=== PATIENT | male | born 1940 | race African-American/Black ===

== ENCOUNTER 2022-09-03 21:38 | Inpatient (IN) | payer OTHER ==
[~2022-09-03] VITALS: Ht 182.9 cm; Wt 44.5 kg
--- NOTE | 2022-09-03 21:44 | NUR ---
Patient placed on bed 1.
[2022-09-03 21:45] VITALS: BP 92/50
--- NOTE | 2022-09-03 21:45 | NUR ---
Dr. Barth examining patient.
[2022-09-03] MEDS ORDERED: cefTRIAXone 1,000 MG in DEXT 5% MINI-BAG PLUS 50 ML IV ONE (21:50)
[2022-09-03 22:12] LABS: BASOPHILS % (AUTO) 0.3 % (0.0-2.0); HEMATOCRIT 31.3 % (36-52); HEMOGLOBIN 9.5 g/dL (12.0-18.0); LYMPHOCYTES # (AUTO) 0.9 K/uL (2.0-11.5); LYMPHOCYTES % (AUTO) 12.7 % (20.5-51.1); MEAN CORPUSCULAR HEMOGLOBIN 26 pg (27-31); MEAN CORPUSCULAR HGB CONC 30 g/dL (33-37); MEAN CORPUSCULAR VOLUME 85.6 fL (80-94); MONOCYTES # (AUTO) 0.6 K/uL (0.8-1.0); MONOCYTES % (AUTO) 8.2 % (1.7-9.3); NEUTROPHILS # (AUTO) 5.4 K/uL (1.8-7.7); NEUTROPHILS % (AUTO) 78.8 % (42.2-75.2); PLATELET COUNT (AUTO) 672 K/uL (140-450); RED BLOOD CELL COUNT(AUTO) 3.66 MIL/uL (4.20-6.10); RED CELL DISTRIBUTION WIDTH 31.2 % (11.6-13.7); WHITE BLOOD COUNT (AUTO) 6.9 K/uL (4.8-10.8)
[2022-09-03] MEDS ORDERED: cefTRIAXone 1,000 MG VIAL ONE (22:24)
[2022-09-03 22:34] LABS: ALBUMIN 2.5 g/dL (3.4-5.0); ASPARTATE AMINOTRANSFERASE 33 U/L (15-37); CARBON DIOXIDE 30.5 mmol/L (21-32); CHLORIDE 109 mmol/L (98-107); CREATININE 1.5 mg/dL (0.6-1.3); GLUCOSE 120 mg/dL (74-106); POTASSIUM 3.5 mmol/L (3.5-5.1); SODIUM SERUM 148 mmol/L (136-145); TOTAL BILIRUBIN 0.2 mg/dL (0.0-1.0); UREA NITROGEN, BLOOD 24 mg/dL (7-18)
[2022-09-03] MEDS ORDERED: FERR325E14 PO (23:21)
[2022-09-03] MEDS ORDERED: NA P133E RC (23:21)
[2022-09-03] MEDS ORDERED: DOXY-690 PO (23:21)
[2022-09-03] MEDS ORDERED: BISA-213 RC (23:21)
[2022-09-03] MEDS ORDERED: DONE5TAB6 PO (23:21)
[2022-09-03] MEDS ORDERED: LIDOCAINE MPF 1% 10 MG/ML VIAL INJ ONE (23:25)
[2022-09-03] MEDS ORDERED: PRED20TA6 PO (23:35)
[2022-09-03] MEDS ORDERED: MIRT-91 PO (23:35)
[2022-09-03] MEDS ORDERED: lactobacillus PO (23:35)
--- NOTE | 2022-09-03 23:55 | NUR ---
RESPIRATORY AT BEDSIDE AND PLACED PT ON SIMPLE MASK. PT HAS 40 % PNEUMOTHORAX TO RIGHT SIDE. PT DENIES ANY PAIN OR SHORTNESS OF BREATH AT THIS TIME. PT IN POSITION OF COMFORT. WILL CONTINUE TO MONITOR. VSS
[2022-09-04] VITALS (14 sets, daily range): BP systolic 98–141; BP diastolic 58–87
--- NOTE | 2022-09-04 | NUR ---
CHEST TUBE SET UP DONE AT THIS TIME BY CADEN BASS
--- NOTE | 2022-09-04 01:14 | NUR ---
PT RESTING, NO S/S OF DISTRESS NOTED AT THIS TIME. VSS. WILL CONTINUE TO MONITOR.
--- NOTE | 2022-09-04 02:05 | NUR ---
DR. TUCKER SPEAKS WITH SON ABOUT CONDITION AND THE NEED FOR CHEST TUBE WITH RISKS AND BENEFITS SPOKEN. SON WILL COME AND SEE PT, TALK TO HIS FATHER AND DECIDE
--- NOTE | 2022-09-04 02:25 | NUR ---
SON AT BEDSIDE WITH DR. TUCKER TO DISCUSS POC. PROCEDURE DISCUSSED WITH RISKS AND BENEFITS KNOWN. WILL HAVE CONSENT FORM SIGNED BY SON AT THIS TIME. SON VERBALIZES FULL UNDERSTANDING AND OK WITH CHEST TUBE.
[2022-09-04] MEDS ORDERED: MORPHINE SULFATE 2 MG/ML SYR IVP PRN (02:40)
[2022-09-04] MEDS ORDERED: HYDROcodone/APAP 5/325 MG 1 TAB TAB PO PRN (02:40)
--- NOTE | 2022-09-04 02:40 | NUR ---
Patient signed consent for chest tube placement .
--- NOTE | 2022-09-04 02:48 | NUR ---
Dr. Mark - started procedure chest tube placement with RN, RT and EMT at bedside.
--- NOTE | 2022-09-04 03:00 | NUR ---
CHEST TUBE PLACEMENT DONE AT THIS TIME. PT TOLERATED WELL.
--- NOTE | 2022-09-04 03:26 | NUR ---
REPORT CALLED TO DOOR CLOSER AT THIS TIME WITH FULL RETURNED VERBAL UNDERSTANDING. PT GOING TO BED 2.
--- NOTE | 2022-09-04 03:48 | NUR ---
PT CLEANED UP AT THIS TIME. PT IS IN A DIAPER AND TOTAL INCONTINENT. PICTURES OF OPEN WOUND TO RIGHT BUTTOCK DONE AT THIS TIME.
--- NOTE | 2022-09-04 04:30 | NUR ---
TRANSPORTED PT TO ICU BED 2 WITH NO COMPLICATIONS. PT LEFT SATING 99% ON 2LNC AND IN NO DISTRESS
--- NOTE | 2022-09-04 04:30 | NUR ---
RECEIVED REPORT FROM ED RN TIFFANIE. PT ARRIVED TO UNIT AT THIS TIME. A&O X2. ABLE TO ANSWER GENERAL QUESTIONS. 2L O2 VIA NASAL CANULA. CHEST TUBE TO RIGHT LATERAL CHEST.ACTIVE BOWEL SOUNDS. PT IS INCONTINENT BOWEL AND BLADDER ACCORDING TO REPORT. A-FIB TO BEDSIDE MONITOR. OPEN WOUND TO RIGHT BUTTOCKS. PT DENIES PAIN AT THIS TIME.
--- NOTE | 2022-09-04 07:29 | NUR ---
REPORT GIVEN TO AM SHIFT CODY HURTADO.
--- NOTE | 2022-09-04 07:30 | NUR ---
REPORT GIVEN TO AM SHIFT CODY HURTADO.
--- NOTE | 2022-09-04 08:00 | NUR ---
ON DUTY RECEIVED THIS PT LETHARGIC, LYING ON BED WITH CHEST TUBE ON. VS STABLE. ON 2L OF NC. BREAKFAST OFFERED, BUT PT REFUSED. PT HAS NO APPETITE.
[2022-09-04] MEDS: PANTOPRAZOLE 40 MG INJ VIAL IVP SCH ×2 (09:00→09:27)
--- NOTE | 2022-09-04 10:30 | NUR ---
WOUND NURSE SILVER CAME IN TO ASSESS PT. WOUND CARE DONE.
--- NOTE | 2022-09-04 11:00 | NUR ---
WOUND CARE NOTE: SKIN ASSESSMENT DONE WITH PRIMARY RN GENESIS ON THIS 81 Y/O ADMITTED WITH INITIAL DX SOB AND COVID-19 IN August. PAST MEDICAL HISTORY OF CHRONIC LEFT LOWER EXTREMITY DVT, CKD, IDDM, DYSPHAGIA, ANEMIA. PT ADMITTED WITH PRESSURE INJURY TO SACRAL. SPINAL BONY AREA INCLUDING COCCYX SKIN ATTACHED TO BONE, VERY THIN AND EASILY TO TORN. PT. BMI IS 13.3 AND ALBUMIN 2.5. PT. SKIN IS WARM AND DRY, BILATERAL LOWER EXTREMITY DRY NO EDEMA. DORSAL PEDAL PULSES PRESENT AND NORMAL. INCONTINENT BOWEL AND BLADDER. PLAN OF CARE DISCUSSED WITH PRIMARY RN. INTEGUMENTARY: -CHEST TUBE TO RIGHT CHEST SECURED AND DRESSING DCI. -SACRAL PRESSURE INJURY STAGE 3 WITH 2X1X0.3CM WOUND BED 100% RED, MOIST, NO ODOR, KHLOE-WOUND SKIN NON-BLANCHABLE REDNESS FURTHER DAMAGE INDICATED - BILATERAL SCAPULARS, SPINAL AREA, COCCYX, PELVIC/TROCHANTERS/KNEES/ANKLES BONY AREAS SKIN THIN TO BONE EASILY TO TORN. -BILATERAL HEELS MUSHY/SKIN INTACT RECOMMENDATIONS: -CLEANSE SACRAL WOUND WITH WOUND CLEANSING SOLUTION, PAT DRY, APPLY THERAHONEY GEL TO WOUND BED, AND Z GUARD TO KHLOE-WOUND SKIN, COVER WITH COMPOSITE DRESSING QD AND PRN IF SOILING -APPLY HYDRAGUARD TO ALL LIMBS AND TRUNK OF BODY BID AND DOWEL SANDER OPERATOR -APPLY FOAM DRESSING TO ALL BONY AREAS BILATERAL SCAPULARS, SPINAL AREA, COCCYX, PELVIC/TROCHANTERS/KNEES/ANKLES BONY AREAS -APPLY HEEL RAISERS TO BILATERAL HEELS -POSITIONING: TURN AND REPOSITION PATIENT Q 2H OR SOONER USE PILLOWS TO KEEP BONY PROMINENCES FROM DIRECT CONTACT WITH SURFACES USE REPOSITIONING WEDGES TO PROVIDE 30-DEGREE ANGLE FOR SIDE LYING POSITIONS OFFLOADING OR FOAM DRESSING TO ALL TUBING TO PREVENT MEDICAL DEVICES RELATED PRESSURE INJURY -RE-EVALUATING AND MANAGING INCONTINENCE MONITOR SKIN CONDITION DURING POSITION CHANGE DO NOT MASSAGE REDNESS, BONY PROMINENCES, DO NOT USE DONUT-TYPE DEVICES FREQUENT KHLOE-CARE AND PROVIDE BARRIER CREAMS PRN IF SOILING MOISTURE CONTROL BY OFFER BED PAGAN/URINAL /ABSORBENT PAD TO WICK AND HOLD MOISTURE. KEEP SKIN DRY AND PROTECT FROM FRICTION -MANAGE FRICTION/SHEAR/MOBILITY KEEP HOB AT THE LOWEST LEVEL OF ELEVATION NO MORE THAN 30 DEGREES UNLESS OTHERWISE CONTRAINDICATED USE LIFT SHEET OR TRANSFER DEVICE TO MOVE PATIENT AND PREVENT LATERAL SHEER. CONSIDER TRAPEZE IF APPROPRIATE PROTECT HEELS, ELBOWS BONY PROMINENCES WITH SKIN BERRIES OR FOAM DRESSING IF EXPOSED TO FRICTION OFFLOAD BILATERAL HEELS BY PLACING PILLOWS UNDER CALVES AT ALL TIMES, UNLESS OTHERWISE CONTRAINDICATED -PRESSURE REDISTRIBUTION SURFACE THERAPY JAZMINE ISOFLEX EDOUARD MATTRESS -NUTRITION: PLEASE FOLLOW RD RECOMMENDATIONS AND OFFER NUTRITION SUPPLEMENTS IF ORDERED.
--- NOTE | 2022-09-04 11:04 | NUR ---
AWAKE RESPONSIVE TO WEB WORKER VERBAL COMMANDS RECEIVED ON SUPPLEMENTAL OXYGEN AT 4 LPM VIA NC SATURATION 100% TITRATED FIO2 TO 3 LPM PATIENT PRESENTING WITH FLUCTUATING SATURATION COLD EXTREMITIES BLOOD PRESSURE 101/61 WEB WORKER TO OBTAIN ROUTINE ABG Addendum: 09/04/22 at 1129 by Vinny Meraz RT GENESIS/ICU BULL RIVETER NOTIFIED
--- NOTE | 2022-09-04 11:30 | NUR ---
PT GOT MORE ALERT. FEED PT WITH BREAKFAST. PT ATE WELL. 50% CONSUMED. PT PERIODICALLY DISATURATED TO 70'S%. BUT SOMETIMES 100%. PT IS ASYMPTOMATIC. RT BEDSIDE. DR. COSTA, CAME TO ASSESS PT. PT SITUATION WAS UPDATED TO PT. NO NEW ORDER.
[2022-09-04] MEDS ORDERED: THERAHONEY GEL 42.5 GM TP PRN (12:05)
[2022-09-04] MEDS ORDERED: FOAM DRESSING TP PRN (12:05)
[2022-09-04] MEDS ORDERED: Z-GUARD PASTE TP PRN (12:05)
--- NOTE | 2022-09-04 12:30 | NUR ---
DISCHARGE PLANNING SW ATTEMPTED TO MEET WITH PATIENT AT BEDSIDE TO DISCUSS AND GATHER HER COLLATERAL INFORMATION. PATIENT WAS AWAKE BUT NOT VERY ALERT, UNABLE TO PROVIDER HER OWN INFORMATION. SW ASKED PATIENT IF THESE WINDER HAND CAN CALL HER DAUGHTER LISTED IN EMERGENCY CONTACTS ANDREA SANTANA TO COLLECT HER INFORMATION AT . PATIENT STATED "YES, CALL ANDREA" SW THANKED HER AND ENDED THE VISIT WITH PATIENT. SW ATTEMPTED TO CONTACT PATIENT'S DAUGHTER ANDREA SANTANA AT . PATIENT'S DAUGHTER DID NOT RESPONDED THE CALL AND SW LEFT HER VOICE MAIL. WITH REQUEST FOR A CALL BACK. SW WILL FOLLOW UP NEEDED.
[2022-09-04] MEDS: FOAM DRESSING TP SCH (13:19)
[2022-09-04] MEDS: HYDRAGUARD CREAM TP SCH (13:20)
[2022-09-04] MEDS: THERAHONEY GEL 42.5 GM TP SCH (13:21)
[2022-09-04] MEDS: Z-GUARD PASTE TP SCH (13:21)
--- NOTE | 2022-09-04 13:40 | NUR ---
PATIENT HAS BEEN SCREENED AND CATEGORIZED HIGH NUTRITION RISK. PATIENT WILL BE SEEN WITHIN 1-2 DAYS OF ADMISSION. 09/05/2210/22/22 CONSULT RECEIVED FOR WOUNDS AND PRESSURE INJURY NJ BARTLETT RD
[2022-09-04] MEDS ORDERED: NACL 0.45% 500 ML IV SCH (16:00)
[2022-09-04] MEDS ORDERED: bisacodyL 10 MG SUPP RC PRN (16:05)
[2022-09-04] MEDS ORDERED: SODIUM PHOSPHATE 118 ML ENEM RC PRN (16:05)
[2022-09-04] MEDS ORDERED: NACL 0.45% 1,000 ML IV SCH (16:10)
--- NOTE | 2022-09-04 16:50 | NUR ---
PT WAS ADMITED TO TEL. ROOM 121B. REPORT WAS CALLED AND GIVEN TO MARVA ROSS.
--- NOTE | 2022-09-04 17:30 | NUR ---
RECEIVED PT CARE AND REPORT FROM GENESIS QUALITY ASSURANCE TESTER. PT IS RESTING IN BED SEMI-FOWLERS. A&OX4. NO VISIBLE S/S OF DISTRESS OR DISCOMFORT, DENIES ANY PAIN OR SOB. CALL LIGHT WAS PLACED WITHIN REACH. ORIENTED PATIENT TO CALL LIGHT AND ROOM. CHEST TUBE IN PLACE ON RIGHT CHEST WALL. DIAPER PLACED ON PATIENT. PT WILL BE MOVED TO BED A FOR EASIER ACCESS TO SUCTION ON WALL. ALL NEEDS HAVE BEEN MET AT THIS TIMEM.
[2022-09-04] MEDS: BLOOD GLUCOSE MONITORING 1 DEV DEV FS SCH ×2 (18:45→20:33)
--- NOTE | 2022-09-04 18:52 | NUR ---
PT IS RESTING IN BED SEMI FOWLERS, A&OX2. NO VISIBLE S/S OF DISTRESS IR DISCOMFORT. DENIES ANY PAIN OR SOB. CHEST TUBE CONNECTED TO WALL SUCTION WITH 180ML OF SEROSANGUINOUS FLUID IN CHAMBER. BS OF 78, NO COVERAGE NEEDED AT THIS TIME. STARTED 0.45% NS AT 40ML IN LEFT AC. ALL NEEDS MET AT THIS TIME, WILL ENDORSE TO NOC SHIFT.
--- NOTE | 2022-09-04 19:20 | NUR ---
RECEIVED PATIENT IN BED AWAKE, ALERT AND ORIENTED X 2. RE-ORIENTED TO TIME, PLACE AND DATED. EATING DINNER AT THIS TIME. RIGHT CHEST TUBE TO SUCTION. NO SHORTNESS OF BREATH, ON 2L N/C SAT 98%. SKIN WARM AND DRY TO TOUCH. LEFT AC IV SITE LEAKING, WILL CHANGE IV WHEN PT FINISHES EATING. SKIN WARM AND DRY TO TOUCH. BED IN THE LOWEST AND LOCKED POSITION FOR SAFETY, CALL LIGHT IN REACH.
--- NOTE | 2022-09-04 19:40 | NUR ---
IV INSERTED IN THE RIGHT FOREARM GAUGE 20 X 1 ATTEMPT, PT TOLERATED WELL.
[2022-09-04] MEDS: DONEPEZIL 10 MG TAB PO SCH (20:21)
[2022-09-04] MEDS: MIRTAZAPINE 15 MG TAB PO SCH (20:22)
--- NOTE | 2022-09-04 21:00 | NUR ---
PATIENT TRIED TO GET OUT OF BED, RE-ORIENTATION DONE. IV ACCIDENTALLY GOT PULLED OUT. INSERTED IV IN THE RIGHT HAND GAUGE 20 X 1 ATTEMPT. PT TOLERATED WELL.
--- NOTE | 2022-09-04 22:35 | NUR ---
LAB CALLED FOR URINE SPECIMEN, NEW ORDER FOR STRAIGHT CATH.
--- NOTE | 2022-09-04 23:00 | NUR ---
IN AND OUT CATHETER DONE ORDERED FOR URINE COLLECTION, NOTED RESISTANCE REMOVED CATHETER AND NOTED SOME BLEEDING. BLADDER SCANNING DONE NOTED MORE THAN 400 CC.
--- NOTE | 2022-09-04 23:40 | NUR ---
RECLAMATION SUPERVISOR MADE UNABLE TO DO IN AND OUT, INSERTED CAUDET SUCCESSFULLY BUT NOTED BLOOD CLOTS, IRRIGATED BUT NO URINE DRAINING, CALLED DR. TOLEDO, AWAITING CALL BACK.
[2022-09-05] VITALS: BP 124/66
--- NOTE | 2022-09-05 | NUR ---
DR. TOLEDO ORDERED FOR UROLOGY CONSULT IN AM AND AN ULTRASOUND OF THE BLADDER NOW. Addendum: 09/05/22 at 0042 by Katty Ledbetter RN KIDNEY ULTRASOUND.
[2022-09-05] MEDS: HYDRAGUARD CREAM TP SCH ×2 (00:06→13:50)
[2022-09-05] MEDS: Z-GUARD PASTE TP SCH ×2 (00:06→13:51)
[2022-09-05] MEDS: ALBUTEROL SULFATE/IPRATROPIU 3 ML SOL IH SCH ×4 (00:42→20:00)
--- NOTE | 2022-09-05 01:10 | NUR ---
ULTRASOUND BEING DONE ORDERED.
--- NOTE | 2022-09-05 01:30 | NUR ---
per pc technician, no catheter seen and minimal urine noted, full charge bookkeeper made aware and he removed urinary catheter. at this time, pad noted to be wet with blood tinged urine. cleaned patient, made comfortable.
[2022-09-05 04:00] VITALS: BP 115/70
--- NOTE | 2022-09-05 04:21 | NUR ---
WILL INFORM DR TOLEDO OF RESULT OF ULTRASOUND ORDERED. AWAITING RESPONSE.
--- NOTE | 2022-09-05 05:31 | NUR ---
AM CARE RENDERED. NO ACUTE DISTRESS. CALL LIGHT IN REACH,
--- NOTE | 2022-09-05 06:12 | NUR ---
LAB CALLED FOR LACTIC ACID OF 3.6, CALLED DR. CHACORTA TOLEDO, AWAITING CALL BACK.
--- NOTE | 2022-09-05 06:23 | NUR ---
PATIENT IS ASLEEP, NO DISTRESS NOTED, SCANTY BLOOD NOTED WHEN DOING PERINEAL CARE. ALL NEEDS ATTENDED TO. SAFETY PRECAUTIONS IN PLACE. CALL LIGHT WITHIN REACH.
[2022-09-05] MEDS: INSULIN LISPRO SLIDING SCALE 100 UNITS/ML VIAL SUBQ PRN (06:32)
[2022-09-05] MEDS: BLOOD GLUCOSE MONITORING 1 DEV DEV FS SCH ×4 (06:32→21:00)
[2022-09-05 08:00] VITALS: BP 99/51
--- NOTE | 2022-09-05 08:45 | NUR ---
Pt. complains of chest pain. V/S WNL. Morphine given as ordered. EKG done. MD aware.
[2022-09-05] MEDS: FERROUS SULFATE 325 MG TABEC PO SCH (09:09)
[2022-09-05] MEDS: DEXTROSE 50% 50 ML SYR IVP PRN (11:47)
--- NOTE | 2022-09-05 11:49 | NUR ---
PER NOTES, PT IS A&O X2 AND IS POOR HISTORIAN. GERTRUDIS OUTREACHED TO PT EMERGENCY CONTACT ANDREA (GRANDDAUGHTER) HOWEVER, ANDREA STRUGGLED TO CONFIRM INFORMATION AND DETAILS ON FILE. ANDREA REQUESTED THAT SW CALL JANNY SANTANA, PT'S SON, TO GATHER COLLATERAL INFORMATION. ANDREA REPORTS THAT PATIENT WAS PREVIOUSLY RESIDING WITH JANNY, HOWEVER, WAS RECENTLY ADMITTED TO [facility] AND DC'd TO "[place]" , ANDREA STRUGGLED TO RECALL NAME OF SNF. ANDREA REPORTS PT HAS BEEN AT [facility] FOR ROUGHLY THREE WEEKS. ANDREA REPORTS PATIENT WAS ADMITTED TO [facility] FROM SNF. GERTRUDIS OUTREACHED TO JANNY SANTANA [phone] TO GATHER COLLATERAL INFORMATION, HOWEVER, NO ANSWER. GERTRUDIS LEFT MESSAGE REQUESTING A RETURN PHONE CALL. Addendum: 09/05/22 at 1559 by Yenni FUENTES SW UNABLE TO REACH PT'S SON, JANNY SANTANA. GERTRUDIS OUTREACHED TO [facility]. SPOKE WITH KIMMY [facility] PURNIMA WHO REPORT PTS IS ADMITTED UNDER SKILLED CARE. PATIENTS ADMISSION DATE 08/17/22, PT IS RECEIVING PT AND OT. PATIENT IS REPORTED TO BE WC BOUND AND IS ABLE TO MAKE NEEDS KNOWN. PATIENTS FAMILY IS REPORTED TO BE ACTIVELY INVOLVED IN CARE AND VISITS WITH PATIENT FREQUENTLY. PER [facility] DC PLAN IS FOR PATIENT TO RETURN WHEN MEDICALLY STABLE.
--- NOTE | 2022-09-05 11:55 | NUR ---
Patient BS=34. MD made aware with orders. Patient is alert. not in any form of distress. will recheck BS and continue to monitor.
[2022-09-05 12:00] VITALS: BP 142/82
[2022-09-05] MEDS: DEXT 5% /NACL 0.9% 1,000 ML IV SCH (12:03)
[2022-09-05] MEDS: DEXTROSE 50% 50 ML SYR IVP SCH (12:03)
[2022-09-05] MEDS: THERAHONEY GEL 42.5 GM TP SCH (13:51)
[2022-09-05 14:28] LABS: BASOPHILS % (AUTO) 0.3 % (0.0-2.0); EOSINOPHILS % (AUTO) 0.1 % (0.0-4.0); HEMATOCRIT 28.3 % (36-52); HEMOGLOBIN 9.1 g/dL (12.0-18.0); LYMPHOCYTES % (AUTO) 14.1 % (20.5-51.1); MEAN CORPUSCULAR HEMOGLOBIN 26 pg (27-31); MEAN CORPUSCULAR HGB CONC 32 g/dL (33-37); MEAN CORPUSCULAR VOLUME 82.6 fL (80-94); MONOCYTES # (AUTO) 0.5 K/uL (0.8-1.0); MONOCYTES % (AUTO) 6.5 % (1.7-9.3); NEUTROPHILS # (AUTO) 5.8 K/uL (1.8-7.7); PLATELET COUNT (AUTO) 500 K/uL (140-450); RED BLOOD CELL COUNT(AUTO) 3.43 MIL/uL (4.20-6.10); RED CELL DISTRIBUTION WIDTH 31.7 % (11.6-13.7); WHITE BLOOD COUNT (AUTO) 7.4 K/uL (4.8-10.8)
[2022-09-05 14:44] LABS: ANION GAP 13.1 (8-16); CARBON DIOXIDE 29.3 mmol/L (21-32); CHLORIDE 108 mmol/L (98-107); CREATININE 1.3 mg/dL (0.6-1.3); GLUCOSE 121 mg/dL (74-106); POTASSIUM 3.4 mmol/L (3.5-5.1); SODIUM SERUM 147 mmol/L (136-145); UREA NITROGEN, BLOOD 30 mg/dL (7-18)
--- NOTE | 2022-09-05 15:03 | NUR ---
09/05/22 RD INITIAL ASSESSMENT COMPLETED PLEASE REFER TO NUTRITION ASSESSMENT UNDER CARE ACTIVITY FOR ESTIMATED NUTRITIONAL NEEDS. 1. CONTINUE CCHO60 CARDIAC, NECTAR THICK LIQUIDS (MECHANICAL SOFT) DIET TOLERATED 2. RECOMMEND ORAL SUPPLEMENT GLUCERNA BID AND PROSOURCE BID WITH NECTAR CONSISTENCY THICKENER FOR NUTRITION SUPPORT - THIS WILL PROVIDE AN ADDITIONAL 560 KCAL AND [address] TO FOLLOW-UP 3-5 DAYS, MODERATE RISK REVIEWED BY NJ BARTLETT RD
--- NOTE | 2022-09-05 15:28 | NUR ---
DC PLANNIN YRS OLD MALE PATIENT WAS ADMITTED FROM [facility] WITH A DX OF PNEUMOTHORAX. PATIENT HAS A HX OF CKD, DM, ANEMIA, DYSPHAGIA COVID, DEMENTIA AND CHRONIC LLE DVT. INSERTED CHEST TUBE, LEMUS CATH FOR URINARY RETENTION. CONSULTED WITH PULMO, UROLOGIST AND SHERIFFS OFFICER DC PLAN TO RETURN TO [facility] WHEN STABLE CM TO FOLLOW Addendum: 09/09/22 at 1540 by Cindy Pearson RN DC PLANNING: STILL HAS CHEST TUBE C/O MILD SOB CXR SHOWED DECREASED SIZE OF RIGHT PNEUMOTHORAX AWAITING FOR PULMO RECOMMENDATION. DC PLAN TO RETURN TO [facility] WHEN STABLE. CM TO FOLLOW Addendum: 09/11/22 at 1643 by Cindy Pearson RN DC PLANNING: RECEIVED A CALL FROM [facility] SPOKE WITH BASIM GRIFFIN PATIENT HAS A [facility] BENEF[facility] AND THEY ARE NOT CONTRACTED WITH [facility] HOWEVER THEY REQUESTING ONE OF THE SISTER'S FACILITY TO ACCEPT PATIENT AND THEY FORWARDED PT'S INFORMATION TO [facility]. RECEIVED A CALL FROM [facility] SPOKE WITH JOHN GRIFFIN STILL AWAITING FOR AUTHORIZATION FROM [place]. CM TO FOLLOW Addendum: 09/12/22 at 1705 by Cindy Pearson RN DC PLANNING: [facility] ACCEPTED PATIENT FOR TOMORROW 09/13 CAN GO TO ROOM 6A # TO GIVE REPORT [phone] ARRANGED TRANSPORT WITH [facility] CALL [facility] [phone] CM TO FOLLOW
[2022-09-05 17:45] VITALS: BP 132/82
[2022-09-05] MEDS: MIRTAZAPINE 15 MG TAB PO SCH (22:30)
[2022-09-05] MEDS: DONEPEZIL 10 MG TAB PO SCH (22:30)
--- NOTE | 2022-09-05 22:38 | NUR ---
REFUSED REMERON , ARICEPT , AND HEP. SQ - INFORMED DR. TOLEDO . THE ARICEPT NOT SUBJECTIVE ANY MORE TO RETURN TO [facility]. IT IS ALREADY CUT INTO HALF , ALSO THE HEPARIN IS ALREADY ASPIRATED TO [place] - WILL DISPOSE THE MEDS PER POLICY . CHARGE NURSE INFORMED .
[2022-09-06] MEDS: Z-GUARD PASTE TP SCH ×2 (01:00→12:57)
[2022-09-06] MEDS: HYDRAGUARD CREAM TP SCH ×2 (01:00→12:57)
[2022-09-06] MEDS: ALBUTEROL SULFATE/IPRATROPIU 3 ML SOL IH SCH ×3 (01:27→19:30)
--- NOTE | 2022-09-06 01:32 | NUR ---
ROUNDS , FOUND PT SITTING ON THE EDGE OF THE BED , TRYING TO GET UP , IV OUT - IV NEEDLE INTACT , MIN. BLEEDING , CHARGE NURSE LUANA HELP ME TO PUT PT LAY BACK OF THE BED , V/S CHECK BP 133/ 80 , MD 88 , RR 20 , O2 SAT 98 % , ON O2 AT 2LPM/NC . WILL CLEAN UP AND WILL CONT. TO MONITOR , WILL RE INSERT NEW IV ACCESS . , CALL LIGHT WITHIN REACH .
[2022-09-06 02:00] VITALS: BP 103/87
--- NOTE | 2022-09-06 02:00 | NUR ---
RE INSERTED IV ACCESS , AT L ARM G22 PT TOLERATED THE PROCEDURE , MIN. BLEEDING .
[2022-09-06 04:00] VITALS: BP 122/60
[2022-09-06] MEDS: DEXT 5% /NACL 0.9% 1,000 ML IV SCH ×2 (04:30→20:50)
--- NOTE | 2022-09-06 04:50 | NUR ---
O2 SAT 94 % , ON O2 AT 2LPM/NC , CALL LIGHT WITHIN REACH , CHEST TUBE INTACT AND FLACTUATING .
--- NOTE | 2022-09-06 05:14 | NUR ---
SCANT. URINE ON URINE BAG , SOFT ABD , - BLADDER SCAN AT RIGHT LOWER IS 60 ML , AT RIGHT UPPER IS 40CC AT THE LEFT UPPER 30CC - THE LEFT LOWER CAN'T SCAN BECAUSE PT IS HESITANTLY PUSHING MY HAND AND TRY TO HIT ME . - WILL 9INFORMED CHARGE NURSE KENNETH CRAFT. TO MONITOR . Addendum: 09/06/22 at 0520 by Ananya Knight RN THE WORD SCANT IN THE ABOVE NURSE'S NOTE IS AN ERROR ENTRY INSTEAD OF SCANTY .
--- NOTE | 2022-09-06 05:38 | NUR ---
TRY TO GET UP , ENSURE SAFETY , CHEST TUBE CHECK - INTACT , CONNECTING TO DRAINAGE - FLACTUATING , BP 140 / 91 , O2 SAT 96 5 , RR 20 , HR 89 , FOR CLOSELY WATCH .
--- NOTE | 2022-09-06 05:40 | NUR ---
FEED PT - NO S/SX OF ASPIRATION NOTED DURING FEEDING . WILL CONT. TO MONITOR . WILL CHECK BLOOD SUGAR .
[2022-09-06] MEDS: DEXTROSE 50% 50 ML SYR IVP PRN (06:20)
[2022-09-06] MEDS: BLOOD GLUCOSE MONITORING 1 DEV DEV FS SCH ×4 (06:20→20:50)
[2022-09-06] MEDS: DEXTROSE 50% 50 ML SYR IVP SCH (06:24)
--- NOTE | 2022-09-06 07:45 | NUR ---
ENDORSED W/ TOTAL 150 CC CHEST TUBE DRAINAGE FOR MY WHOLE SHIFT , BS 107 , AWAKE , O2 SAT 94 %
[2022-09-06 08:00] VITALS: BP 129/75
[2022-09-06] MEDS: PANTOPRAZOLE 40 MG INJ VIAL IVP SCH (09:55)
[2022-09-06] MEDS: FERROUS SULFATE 325 MG TABEC PO SCH (09:55)
[2022-09-06 12:00] VITALS: BP 132/72
[2022-09-06] MEDS: metroNIDAZOLE 500 MG/NS PREMIX 100 ML IV SCH ×2 (12:54→20:37)
[2022-09-06] MEDS: THERAHONEY GEL 42.5 GM TP SCH (13:00)
[2022-09-06 15:32] LABS: ANION GAP 14.5 (8-16); CARBON DIOXIDE 27.1 mmol/L (21-32); CHLORIDE 111 mmol/L (98-107); CREATININE 1.2 mg/dL (0.6-1.3); GLUCOSE 95 mg/dL (74-106); POTASSIUM 3.6 mmol/L (3.5-5.1); SODIUM SERUM 149 mmol/L (136-145); UREA NITROGEN, BLOOD 27 mg/dL (7-18)
[2022-09-06 16:00] VITALS: BP 126/70
[2022-09-06 18:25] LABS: EOSINOPHILS % (AUTO) 0.1 % (0.0-4.0); HEMATOCRIT 23.6 % (36-52); MONOCYTES # (AUTO) 0.4 K/uL (0.8-1.0); RED BLOOD CELL COUNT(AUTO) 2.77 MIL/uL (4.20-6.10)
[2022-09-06 18:32] LABS: BASOPHILS % (AUTO) 0.6 % (0.0-2.0); HEMOGLOBIN 7.7 g/dL (12.0-18.0); LYMPHOCYTES # (AUTO) 1.3 K/uL (2.0-11.5); MEAN CORPUSCULAR HEMOGLOBIN 28 pg (27-31); MEAN CORPUSCULAR HGB CONC 33 g/dL (33-37); MONOCYTES % (AUTO) 8.7 % (1.7-9.3); NEUTROPHILS # (AUTO) 2.5 K/uL (1.8-7.7); NEUTROPHILS % (AUTO) 60.6 % (42.2-75.2); PLATELET COUNT (AUTO) 520 K/uL (140-450); RED CELL DISTRIBUTION WIDTH 31.7 % (11.6-13.7); WHITE BLOOD COUNT (AUTO) 4.2 K/uL (4.8-10.8)
--- NOTE | 2022-09-06 19:39 | NUR ---
GET THE REPORT FROM MORNING NURSE, PATIENT IS LYING ON BED, PATIENT IS ALERT ORIENTED X2-3 ,PATIENT IS RECEIVING OXYGEN 2 LITER VIA NASAL CANNULA, PATIENT HAS CHEST TUBE, FUNCTIONING WELL, ALL FALL PRECAUTION MEASURE ARE IN PLACE, CALL LIGHT IS WITHIN THE REACH, WILL CONTINUE TO MONITOR PATIENT.
[2022-09-06 20:00] VITALS: BP 130/76
[2022-09-06] MEDS: MIRTAZAPINE 15 MG TAB PO SCH (20:45)
[2022-09-06] MEDS: DONEPEZIL 10 MG TAB PO SCH (20:45)
--- NOTE | 2022-09-06 20:51 | NUR ---
PATIENT IS LYING ON BED, NO ANY COMPLAIN OF PAIN OR SHORTNESS OF BREATH AT THIS TIME, VITAL SIGN IS WITHIN THE NORMAL RANGE,PATIENT BLOOD SUGAR IS 95, NO INSULIN COVERAGE IS NEEDED AT THIS TIME, ALL SCHEDULE MEDICATION IS GIVEN PER DOCTOR ORDER, CALL LIGHT IS WITHIN THE REACH, WILL CONTINUE TO MONITOR PATIENT.
[2022-09-06 21:05] LABS: APPEARANCE,URINE SL CLOUDY (CLEAR); BILIRUBIN,URINE NEGATIVE (NEGATIVE); BLOOD, URINE 3+ (NEGATIVE); COLOR,URINE DARK YELLOW (YELLOW); LEUKOCYTE ESTERASE ,URINE 1+ (NEGATIVE); NITRITE, URINE NEGATIVE (NEGATIVE); UGLUCOSE NEGATIVE (NEGATIVE)
[2022-09-06 21:29] LABS: RBC,URINE 50-80 /HPF (0-5); WBC,URINE 20-60 /HPF (0-5)
[2022-09-06 21:32] LABS: TRICHOMONAS,URINE None Seen /HPF (None Seen); YEAST,URINE None Seen /HPF (None Seen)
[2022-09-07] VITALS: BP 149/80
[2022-09-07] MEDS: HYDRAGUARD CREAM TP SCH ×2 (00:09→13:39)
[2022-09-07] MEDS: Z-GUARD PASTE TP SCH ×2 (00:09→13:39)
--- NOTE | 2022-09-07 00:13 | NUR ---
PATIENT IS LYING ON BED, NO ANY COMPLAIN OF PAIN OR SHORTNESS OF BREATH AT THIS TIME,VITAL SIGN IS WITHIN THE NORMAL RANGE, CALL LIGHT IS WITHIN THE REACH, WILL CONTINUE TO MONITOR PATIENT.
[2022-09-07] MEDS: ALBUTEROL SULFATE/IPRATROPIU 3 ML SOL IH SCH ×4 (00:27→19:25)
[2022-09-07] MEDS: DEXT 5% /NACL 0.9% 1,000 ML IV SCH (03:41)
[2022-09-07 04:00] VITALS: BP 137/84
--- NOTE | 2022-09-07 04:28 | NUR ---
VITAL SIGN IS WITHIN THE NORMAL RANGE, ALL SCHEDULE MEDICATION IS GIVEN PER DOCTOR ORDER, NO ANY COMPLAIN OF PAIN OR SHORTNESS OF BREATH AT THIS TIME, CALL LIGHT IS WITHIN THE REACH, WILL CONTINUE TO MONITOR PATIENT.
[2022-09-07 05:53] LABS: BASOPHILS % (AUTO) 0.8 % (0.0-2.0); EOSINOPHILS % (AUTO) 0.6 % (0.0-4.0); HEMATOCRIT 24.8 % (36-52); HEMOGLOBIN 8.2 g/dL (12.0-18.0); LYMPHOCYTES % (AUTO) 26.4 % (20.5-51.1); MEAN CORPUSCULAR HEMOGLOBIN 28 pg (27-31); MEAN CORPUSCULAR HGB CONC 33 g/dL (33-37); MEAN CORPUSCULAR VOLUME 84.4 fL (80-94); MONOCYTES # (AUTO) 0.4 K/uL (0.8-1.0); MONOCYTES % (AUTO) 11.3 % (1.7-9.3); NEUTROPHILS # (AUTO) 2.4 K/uL (1.8-7.7); NEUTROPHILS % (AUTO) 60.9 % (42.2-75.2); PLATELET COUNT (AUTO) 562 K/uL (140-450); RED BLOOD CELL COUNT(AUTO) 2.94 MIL/uL (4.20-6.10); RED CELL DISTRIBUTION WIDTH 31.8 % (11.6-13.7); WHITE BLOOD COUNT (AUTO) 3.9 K/uL (4.8-10.8)
[2022-09-07] MEDS: metroNIDAZOLE 500 MG/NS PREMIX 100 ML IV SCH ×3 (06:05→21:05)
[2022-09-07 06:17] LABS: ANION GAP 12.6 (8-16); CARBON DIOXIDE 27.7 mmol/L (21-32); CHLORIDE 113 mmol/L (98-107); GLUCOSE 76 mg/dL (74-106); POTASSIUM 3.3 mmol/L (3.5-5.1); SODIUM SERUM 150 mmol/L (136-145); UREA NITROGEN, BLOOD 22 mg/dL (7-18)
[2022-09-07] MEDS: BLOOD GLUCOSE MONITORING 1 DEV DEV FS SCH ×4 (06:31→20:47)
--- NOTE | 2022-09-07 06:32 | NUR ---
PATIENT BLOOD SUGAR IS 68, NO INSULIN COVERAGE IS NEEDED AT THIS TIME, CALL LIGHT IS WITHIN THE REACH ,WILL CONTINUE TO MONITOR PATIENT.
--- NOTE | 2022-09-07 07:08 | NUR ---
GAVE THE REPORT TO MORNING NURSE ADZE FOR CONTINUOUS OF CARE, PATIENT IS STABLE.
--- NOTE | 2022-09-07 07:40 | NUR ---
PT REFUSED TX. WANTED TO KEEP SLEEPING. NO DISTRESS NOTED.
[2022-09-07 08:00] VITALS: BP 135/90
[2022-09-07] MEDS ORDERED: MAG SULF 2000 MG/WATER PREMIX 50 ML IV PRN (08:25)
[2022-09-07] MEDS ORDERED: POTASSIUM CHLORIDE 10 MEQ TABER PO PRN (08:25)
[2022-09-07] MEDS ORDERED: KCL 20 MEQ/WATER INJ PREMIX 200 ML IV PRN (08:25)
[2022-09-07] MEDS ORDERED: POTASSIUM CHLORIDE 40 MEQ, LIDOCAINE MPF 1% 25 MG in NACL 0.9% 250 ML IV PRN (08:25)
[2022-09-07] MEDS: FOAM DRESSING TP SCH (09:00)
[2022-09-07] MEDS: PANTOPRAZOLE 40 MG INJ VIAL IVP SCH (09:59)
[2022-09-07] MEDS: FERROUS SULFATE 325 MG TABEC PO SCH (10:00)
[2022-09-07 12:00] VITALS: BP 130/72
[2022-09-07] MEDS: DEXTROSE 50% 50 ML SYR IVP SCH (12:00)
[2022-09-07] MEDS: THERAHONEY GEL 42.5 GM TP SCH (13:39)
--- NOTE | 2022-09-07 14:00 | NUR ---
pt refused tx. no distress noted.
[2022-09-07 16:00] VITALS: BP 133/75
--- NOTE | 2022-09-07 16:00 | NUR ---
R hand IV infiltrated. patient pulled IV dressing out. R hand swollen but soft ,non tender, pt. denies any pain. Will elevate R hand and continue to monitor.
[2022-09-07] MEDS: INSULIN LISPRO SLIDING SCALE 100 UNITS/ML VIAL SUBQ PRN (17:16)
--- NOTE | 2022-09-07 19:16 | NUR ---
pt. refused to eat dinner. states he will eat dinner in an hour. BS 108. Inserted new IV to R upper hand with good blood return. Pt. tolerated well. R chest tube intact draining to LIS. Gore catheter remained intact. will endorse to PM nurse.
--- NOTE | 2022-09-07 19:50 | NUR ---
GOT REPORT FROM AM NURSE BOOGIE, PATIENT IS LYING ON THE BED, PATIENT IS ALERT AND ORIENTED X2-3, ALL FALL PRECAUTION MEASURES ARE IN PLACE, PATIENT IS ON O2 @2L NC, PATIENT HAS RIGHT SIDE CHEST TUBE, FUNCTIONING WELL, PATIENT HAS LEMUS CATHETER IN PLACE, PATENT, CALL LIGHT IS WITHIN REACH, WILL CONTINUE TO MONITOR PATIENT.
[2022-09-07 20:00] VITALS: BP 151/83
[2022-09-07] MEDS: MIRTAZAPINE 15 MG TAB PO SCH (20:47)
[2022-09-07] MEDS: DONEPEZIL 10 MG TAB PO SCH (20:47)
--- NOTE | 2022-09-07 20:58 | NUR ---
PATIENT IS LYING ON THE BED, ON O2 2LPM NC, NO SOB OR PAIN NOTED AT THIS TIME, BS 99MG/DL, NO COVERAGE NEEDED, ALL SCHEDULED MEDICATIONS GIVEN ORDERED, VITAL SIGNS WITHIN THE NORMAL RANGE. CALL LIGHT WITHIN REACH, WILL CONTINUE TO MONITOR.
[2022-09-08] VITALS: BP 138/80
--- NOTE | 2022-09-08 00:20 | NUR ---
VITAL SIGN IS WITHIN THE NORMAL RANGE, PATIENT IS LYING ON BED, NO ANY COMPLAIN OF PAIN OR SOB AT THIS TIME, WILL CONTINUE TO MONITOR PATIENT.
[2022-09-08] MEDS: HYDRAGUARD CREAM TP SCH ×2 (00:24→13:26)
[2022-09-08] MEDS: Z-GUARD PASTE TP SCH ×2 (00:25→13:26)
[2022-09-08] MEDS: ALBUTEROL SULFATE/IPRATROPIU 3 ML SOL IH SCH ×4 (01:00→19:41)
[2022-09-08 04:00] VITALS: BP 143/81
[2022-09-08] MEDS: metroNIDAZOLE 500 MG/NS PREMIX 100 ML IV SCH ×3 (04:50→22:07)
[2022-09-08] MEDS: DEXT 5% /NACL 0.9% 1,000 ML IV SCH (04:51)
--- NOTE | 2022-09-08 06:19 | NUR ---
PATIENT'S BLOOD SUGAR IS 92MG/DL, NO COVERAGE NEEDED.
[2022-09-08] MEDS: BLOOD GLUCOSE MONITORING 1 DEV DEV FS SCH ×4 (06:34→21:19)
--- NOTE | 2022-09-08 07:08 | NUR ---
GAVE THE REPORT TO MORNING NURSE RADHA FOR CONTINUOS OF CARE, PATIENT IS STABLE.
--- NOTE | 2022-09-08 07:10 | NUR ---
RECEIVED REPORT FROM SENIOR DATA SCIENTIST JUNAID RN, FOR CONTINUITY OF CARE. NO SIGNS OF DISTRESS OR LABORED BREATHING. PATIENT IS LYING ON THE BED, ON 2L NC, NO SOB OR PAIN NOTED AT THIS TIME. IV 20G R FOREARM IS PATENT, INTACT AND RUNNING D5/NS AT 60ML/HR. SKIN IS INTACT EXCEPT FOR CHEST TUBE SITE AND STAGE 2 ON SACRUM. CALL LIGHT WITHIN REACH, BED IN LOW POSITION, TWO SIDE RAILS ARE UP, AND ALL SAFETY MEASURES MEET AT THIS TIME. WILL CONTINUE TO MONITOR.
[2022-09-08 07:44] LABS: PROTHROMBIN TIME 11.5 secs (10.8-13.4)
--- NOTE | 2022-09-08 07:55 | NUR ---
LOC AWAKE AND ALERT C/O NASAL DRYNESS WITH SUPPLEMENTAL OXYGEN USE POST HHN THERAPY ADDED HUMIDIFIER
[2022-09-08 08:00] VITALS: BP_SYST 155; BP_SYST 160; BP_DIAS 89
[2022-09-08] MEDS: FERROUS SULFATE 325 MG TABEC PO SCH (09:26)
[2022-09-08] MEDS: PANTOPRAZOLE 40 MG INJ VIAL IVP SCH (09:29)
[2022-09-08 10:02] LABS: HEMATOCRIT 28.1 % (36-52); HEMOGLOBIN 8.8 g/dL (12.0-18.0); MEAN CORPUSCULAR HEMOGLOBIN 27 pg (27-31); RED BLOOD CELL COUNT(AUTO) 3.24 MIL/uL (4.20-6.10)
[2022-09-08 10:09] LABS: EOSINOPHILS % (AUTO) 0.8 % (0.0-4.0); LYMPHOCYTES # (AUTO) 1.5 K/uL (2.0-11.5); LYMPHOCYTES % (AUTO) 36.7 % (20.5-51.1); MEAN CORPUSCULAR HGB CONC 31 g/dL (33-37); MEAN CORPUSCULAR VOLUME 86.7 fL (80-94); MONOCYTES # (AUTO) 0.3 K/uL (0.8-1.0); MONOCYTES % (AUTO) 6.9 % (1.7-9.3); NEUTROPHILS # (AUTO) 2.2 K/uL (1.8-7.7); NEUTROPHILS % (AUTO) 54.6 % (42.2-75.2); PLATELET COUNT (AUTO) 519 K/uL (140-450); RED CELL DISTRIBUTION WIDTH 31.6 % (11.6-13.7)
[2022-09-08 10:11] LABS: ANION GAP 12.8 (8-16); CARBON DIOXIDE 29.5 mmol/L (21-32); CHLORIDE 114 mmol/L (98-107); GLUCOSE 112 mg/dL (74-106); POTASSIUM 3.3 mmol/L (3.5-5.1); SODIUM SERUM 153 mmol/L (136-145); UREA NITROGEN, BLOOD 20 mg/dL (7-18)
[2022-09-08 12:00] VITALS: BP 121/80
--- NOTE | 2022-09-08 12:00 | NUR ---
PT RESTING IN BED WATCHING TV. NO SIGNS OF DISTRESS. WILL CONTINUE MONITOR.
[2022-09-08] MEDS: THERAHONEY GEL 42.5 GM TP SCH (13:26)
[2022-09-08 16:00] VITALS: BP 130/76
--- NOTE | 2022-09-08 16:30 | NUR ---
PT GIVEN A SANDWICH AND APPLE JUICE.
--- NOTE | 2022-09-08 19:10 | NUR ---
ENDORSED PT TO NIGHT NURSE CODY SCOTT FOR CONTINUITY OF CARE, PATIENT IS STABLE.
[2022-09-08 20:00] VITALS: BP 134/72
[2022-09-08] MEDS: DONEPEZIL 10 MG TAB PO SCH (21:27)
[2022-09-08] MEDS: MIRTAZAPINE 15 MG TAB PO SCH (21:27)
[2022-09-09] VITALS (7 sets, daily range): BP systolic 124–162; BP diastolic 58–95
[2022-09-09] MEDS: Z-GUARD PASTE TP SCH ×2 (03:07→13:34)
[2022-09-09] MEDS: DEXT 5% /NACL 0.9% 1,000 ML IV SCH (03:07)
[2022-09-09] MEDS: HYDRAGUARD CREAM TP SCH ×2 (03:07→13:34)
[2022-09-09] MEDS: metroNIDAZOLE 500 MG/NS PREMIX 100 ML IV SCH ×3 (05:19→21:29)
[2022-09-09] MEDS: BLOOD GLUCOSE MONITORING 1 DEV DEV FS SCH ×4 (06:35→20:52)
[2022-09-09] MEDS: ALBUTEROL SULFATE/IPRATROPIU 3 ML SOL IH SCH ×2 (07:00→19:00)
--- NOTE | 2022-09-09 07:05 | NUR ---
RECEIVED REPORT FROM TECH ED/WOODSHOP TEACHER TYLER RN, FOR CONTINUITY OF CARE. NO SIGNS OF DISTRESS OR LABORED BREATHING. PATIENT IS LYING ON THE BED, ON 2L NC, NO SOB OR PAIN NOTED AT THIS TIME. IV 20G R FOREARM IS PATENT, INTACT AND RUNNING D5/NS AT 60ML/HR. SKIN IS INTACT EXCEPT FOR CHEST TUBE SITE AND STAGE 2 ON SACRUM. CALL LIGHT WITHIN REACH, BED IN LOW POSITION, TWO SIDE RAILS ARE UP, AND ALL SAFETY MEASURES MEET AT THIS TIME. WILL CONTINUE TO MONITOR.
[2022-09-09 09:00] LABS: EOSINOPHILS # (AUTO) 0.1 K/uL (0-0.4); EOSINOPHILS % (AUTO) 2.8 % (0.0-4.0); HEMATOCRIT 26.8 % (36-52); HEMOGLOBIN 8.5 g/dL (12.0-18.0); LYMPHOCYTES # (AUTO) 0.9 K/uL (2.0-11.5); LYMPHOCYTES % (AUTO) 26.1 % (20.5-51.1); MEAN CORPUSCULAR HEMOGLOBIN 28 pg (27-31); MEAN CORPUSCULAR HGB CONC 32 g/dL (33-37); MEAN CORPUSCULAR VOLUME 88.1 fL (80-94); MONOCYTES # (AUTO) 0.3 K/uL (0.8-1.0); MONOCYTES % (AUTO) 7.8 % (1.7-9.3); NEUTROPHILS # (AUTO) 2.1 K/uL (1.8-7.7); NEUTROPHILS % (AUTO) 62.3 % (42.2-75.2); PLATELET COUNT (AUTO) 469 K/uL (140-450); RED BLOOD CELL COUNT(AUTO) 3.04 MIL/uL (4.20-6.10); RED CELL DISTRIBUTION WIDTH 31.4 % (11.6-13.7); WHITE BLOOD COUNT (AUTO) 3.3 K/uL (4.8-10.8)
[2022-09-09] MEDS: PANTOPRAZOLE 40 MG INJ VIAL IVP SCH (09:00)
[2022-09-09] MEDS: FERROUS SULFATE 325 MG TABEC PO SCH (09:00)
[2022-09-09 09:08] LABS: ANION GAP 10.3 (8-16); CARBON DIOXIDE 28.6 mmol/L (21-32); CHLORIDE 115 mmol/L (98-107); CREATININE 0.9 mg/dL (0.6-1.3); GLUCOSE 87 mg/dL (74-106); POTASSIUM 3.9 mmol/L (3.5-5.1); SODIUM SERUM 150 mmol/L (136-145); UREA NITROGEN, BLOOD 15 mg/dL (7-18)
--- NOTE | 2022-09-09 12:45 | NUR ---
PTS IV STARTED TO HURT. FLUSHED IV AND IT IS PATENT. ASKED ANOTHER NURSE IF THEY CAN PLACE AN IV FOR ME AFTER I TRIED TWO TIMES. THEY GOT A 24G IN THE LEFT HAND
[2022-09-09] MEDS: THERAHONEY GEL 42.5 GM TP SCH (13:34)
--- NOTE | 2022-09-09 15:40 | NUR ---
09/09/22 RD FOLLOW UP COMPLETED PLEASE REFER TO NUTRITION ASSESSMENT UNDER CARE ACTIVITY FOR ESTIMATED NUTRITIONAL NEEDS. 1. CONTINUE CCHO60 CARDIAC,NECTAR THICK LIQUIDS (MECHANICAL SOFT) DIET TOLERATED 2. CONTINUE ORAL SUPPLEMENT GLUCERNA BID AND PROSOURCE BID WITH NECTAR CONSISTENCY THICKENER FOR NUTRITION SUPPORT AND WOUND HEALING. 3. RD TO FOLLOW-UP 3-5 DAYS, MODERATE RISK REVIEWED BY NJ BARTLETT RD
[2022-09-09] MEDS: DEXTROSE 5% 1,000 ML IV SCH (15:48)
--- NOTE | 2022-09-09 19:20 | NUR ---
ENDORSED PT TO NIGHT NURSE BRANDAN ROSS, FOR CONTINUITY OF CARE, PATIENT IS STABLE.
[2022-09-09] MEDS: MIRTAZAPINE 15 MG TAB PO SCH (21:29)
[2022-09-09] MEDS: DONEPEZIL 10 MG TAB PO SCH (21:29)
[2022-09-10] VITALS: BP 142/80
[2022-09-10] MEDS: ALBUTEROL SULFATE/IPRATROPIU 3 ML SOL IH SCH ×3 (01:00→19:00)
[2022-09-10] MEDS: HYDRAGUARD CREAM TP SCH ×2 (02:58→13:24)
[2022-09-10] MEDS: Z-GUARD PASTE TP SCH ×2 (02:58→13:25)
[2022-09-10 04:00] VITALS: BP 153/88
[2022-09-10] MEDS: metroNIDAZOLE 500 MG/NS PREMIX 100 ML IV SCH ×3 (06:01→20:24)
[2022-09-10] MEDS: BLOOD GLUCOSE MONITORING 1 DEV DEV FS SCH ×4 (06:11→20:41)
--- NOTE | 2022-09-10 06:50 | NUR ---
PATIENT STABLE THIS SHIFT DENIES ANY PAIN, GOT ALL HIS SCHEDULE MEDICATIONS, BLOOD SUGAR WITHIN NORMAL LIMITS.WILL ENDORSE TO ONCOMING SHIFT FOR CONTINUITY OF CARE
--- NOTE | 2022-09-10 07:10 | NUR ---
PATIENT REFUSED TREATMENT. PATIENT ALSO REFUSED VITAL SIGN CHECK. PATIENT WANTED TO CONTINUE SLEEPING AND WAS VERY AGITATED. NO RESPIRATORY DISTRESS WAS NOTED. WILL CONTINUE TO MONITOR PATIENT.
--- NOTE | 2022-09-10 07:20 | NUR ---
RECEIVED BEDSIDE REPORT FROM [employer] RN . PT RESTING IN BED WITH NO S/S OF DISTRESS. PT IS ON 2L NC, WITH A CHEST TUBE IN PLACE. PT HAS A 20G IV IN THE RIGHT FOREARM & 24G IV ON THE LEFT ARM. PT IS A&OX2. BED IS IN THE LOWEST POSITION, CALL LIGHT IS WITHIN REACH, BED ALARMS CHECKED.
--- NOTE | 2022-09-10 07:50 | NUR ---
PT REFUSED V/S AND SCREAMED AT STAFF TO LEAVE HIM ALONE AND WANTED TO KEEP SLEEPING. NOTIFIED [employer] ROOTED HAIR.
[2022-09-10] MEDS: DEXTROSE 5% 1,000 ML IV SCH ×2 (08:30→23:02)
[2022-09-10] MEDS: FOAM DRESSING TP SCH (09:00)
[2022-09-10] MEDS: PANTOPRAZOLE 40 MG INJ VIAL IVP SCH (09:50)
[2022-09-10] MEDS: FERROUS SULFATE 325 MG TABEC PO SCH (09:50)
--- NOTE | 2022-09-10 10:20 | NUR ---
PER , CHEST TUBE TO BE REMOVED AND SITE DRESSED. CXR ORDERED FOR 1600 TO ASSESS PNEUMOTHORAX. PT TOLERATED PROCEDURE WELL, NO COMPLAINTS OF PAIN REPORTED.
[2022-09-10] MEDS: INSULIN LISPRO SLIDING SCALE 100 UNITS/ML VIAL SUBQ PRN (11:54)
[2022-09-10 12:00] VITALS: BP 128/73
--- NOTE | 2022-09-10 12:00 | NUR ---
BED BATH GIVEN, PT HAD MOD BM. PT IN STABLE CONDITION.
[2022-09-10] MEDS: THERAHONEY GEL 42.5 GM TP SCH (13:24)
--- NOTE | 2022-09-10 15:30 | NUR ---
PT COMPLAINED OF INCREASED SOB, CONTACTED DR. PAEZ FOR NEW ORDERS. PT HAD NASAL CANNULA PRONG TO SIDE AND WAS SATING AT 88%. REPLACED NASAL CANNULA AND INCREASED PT TO 5L. PT SATING AT 93-94%, EXPIRATORY WHEEZING HEARD ON RIGHT LOBES. PAGED RT TO THE BEDSIDE.
--- NOTE | 2022-09-10 15:45 | NUR ---
RT AT THE BEDSIDE, PT PLACED ON 7L OXYMIZER, PT REPORTED INCREASED RELIEF OF BREATHING. NEW ORDER FOR ONE TIME DOSE ATIVAN 1MG IVP FOR ANXIETY.
--- NOTE | 2022-09-10 15:45 | NUR ---
PT FOUND ON 5L NC. PER RN PT WAS DESATTING PRIOR TO GETTING THERE. O2 SAT 94% UPON ARRIVAL. PT WAS PUT ON 7L OXYMIZER SAT 98%.
[2022-09-10 16:00] VITALS: BP 125/75
[2022-09-10] MEDS ORDERED: LORazepam 2 MG/ML VIAL IM/IVP SCH (16:00)
--- NOTE | 2022-09-10 17:00 | NUR ---
PT CURRENTLY SLEEPING, NO SIGNS OF PAIN OR DISTRESS NOTED AT THIS TIME.
--- NOTE | 2022-09-10 19:10 | NUR ---
ENDORSED PT TO [facility] NURSE ZENA FOR CONTINUITY OF CARE. PT IN STABLE CONDITION.
--- NOTE | 2022-09-10 19:11 | NUR ---
RECEIVED PT TO MORNING SHIFT NURSE. PT IS AOX2, AND BEDBOUND. PT IS ON NORMAL SINUS RHYTHM, WITH 7L OXYMIZER AND ON CARDIAC DIET. PT HAS LEMUS CATHETER AND HAS IV ON RIGHT FOREARM GAUGE 20 AND LEFT HAND GAUGE 24 RUNNING WITH D5W AT 75. PT HAS STAGE 2 PRESSURE ULCER ON SACRUM. ALL SAFETY MEASURES IMPLEMENTED. BED IN LOW POSITION, BED WHEELS ON LOCKED AND CALL LIGHT WITHIN REACH.
--- NOTE | 2022-09-10 19:45 | NUR ---
TRANSFER PT TO ROOM 107A. ALL SAFETY MEASURES IMPLEMENTED. BED IN LOW POSITION, BED WHEELS ON LOCKED AND CALL LIGHT WITHIN REACH.
[2022-09-10 20:00] VITALS: BP 123/76
[2022-09-10] MEDS: MIRTAZAPINE 15 MG TAB PO SCH (20:25)
[2022-09-10] MEDS: LABETALOL 100 MG TAB PO SCH (20:25)
[2022-09-10] MEDS: DONEPEZIL 10 MG TAB PO SCH (20:26)
--- NOTE | 2022-09-10 20:26 | NUR ---
ALL SCHEDULED AND PRESCRIBED MEDICATION WAS GIVEN TO PT PER MD ORDER. ALL SAFETY MEASURES IMPLEMENTED. BED IN LOW POSITION, BED WHEELS ON LOCKED AND CALL LIGHT WITHIN REACH.
--- NOTE | 2022-09-10 20:41 | NUR ---
PT BLOOD GLUCOSE IS 100. NO INSULIN COVERAGE NEEDED.
--- NOTE | 2022-09-10 22:00 | NUR ---
HELPED THE PT TO TURN AND FIX HIS BLANKET. TALKED TO PT TO SLEEP BECAUSE ITS NIGHT ALREADY. PT AGREED ON IT. ALL SAFETY MEASURES IMPLEMENTED. BED IN LOW POSITION, BED WHEELS ON LOCKED AND CALL LIGHT WITHIN REACH.
[2022-09-11] VITALS (7 sets, daily range): BP systolic 105–140; BP diastolic 57–85
--- NOTE | 2022-09-11 | NUR ---
PT IS SLEEPING. CHEST RISE AND FALL NOTED. NO S/S OF RESPIRATORY DISTRESS NOTED. ALL SAFETY MEASURES IMPLEMENTED. BED IN LOW POSITION, BED WHEELS ON LOCKED AND CALL LIGHT WITHIN REACH.
[2022-09-11] MEDS: ALBUTEROL SULFATE/IPRATROPIU 3 ML SOL IH SCH ×4 (01:00→20:44)
--- NOTE | 2022-09-11 02:00 | NUR ---
CHECKED TH PT STILL SLEEPING. CHEST RISE AND FALL NOTED. NO S/S OF RESPIRATORY DISTRESS NOTED. ALL SAFETY MEASURES IMPLEMENTED. BED IN LOW POSITION, BED WHEELS ON LOCKED AND CALL LIGHT WITHIN REACH.
--- NOTE | 2022-09-11 02:16 | NUR ---
PT REFUSED Tx AND STATED HE WANTS TO REST PT INFORMED WILL RETURN SHOULD HE FEEL SOB PT UNDERSTOOD WILL CONTINUE TO MONITOR
[2022-09-11] MEDS: HYDRAGUARD CREAM TP SCH ×2 (02:57→13:00)
[2022-09-11] MEDS: Z-GUARD PASTE TP SCH ×2 (02:58→13:00)
--- NOTE | 2022-09-11 04:00 | NUR ---
PT WAS GIVEN CRACKERS PER PT REQUEST. ASKED THE MACHINE OPERATORS TO ASSIST THE PT IN FEEDING. ALL SAFETY MEASURES IMPLEMENTED. BED IN LOW POSITION, BED WHEELS ON LOCKED AND CALL LIGHT WITHIN REACH.
[2022-09-11] MEDS: DEXTROSE 5% 1,000 ML IV SCH (06:21)
[2022-09-11] MEDS: BLOOD GLUCOSE MONITORING 1 DEV DEV FS SCH ×4 (06:34→20:48)
--- NOTE | 2022-09-11 06:34 | NUR ---
PT BLOOD GLUCOSE IS 136. NO INSULIN COVERAGE NEEDED.
[2022-09-11 07:09] LABS: ANION GAP 6.7 (8-16); BASOPHILS % (AUTO) 0.6 % (0.0-2.0); CARBON DIOXIDE 30.4 mmol/L (21-32); CHLORIDE 111 mmol/L (98-107); CREATININE 0.8 mg/dL (0.6-1.3); EOSINOPHILS # (AUTO) 0.1 K/uL (0-0.4); EOSINOPHILS % (AUTO) 2.5 % (0.0-4.0); GLUCOSE 154 mg/dL (74-106); HEMATOCRIT 23.7 % (36-52); HEMOGLOBIN 7.5 g/dL (12.0-18.0); LYMPHOCYTES # (AUTO) 0.7 K/uL (2.0-11.5); LYMPHOCYTES % (AUTO) 24.6 % (20.5-51.1); MEAN CORPUSCULAR HEMOGLOBIN 28 pg (27-31); MEAN CORPUSCULAR HGB CONC 32 g/dL (33-37); MEAN CORPUSCULAR VOLUME 89.2 fL (80-94); MONOCYTES # (AUTO) 0.3 K/uL (0.8-1.0); MONOCYTES % (AUTO) 9.1 % (1.7-9.3); NEUTROPHILS # (AUTO) 1.9 K/uL (1.8-7.7); NEUTROPHILS % (AUTO) 63.2 % (42.2-75.2); PLATELET COUNT (AUTO) 372 K/uL (140-450); POTASSIUM 4.1 mmol/L (3.5-5.1); RED BLOOD CELL COUNT(AUTO) 2.66 MIL/uL (4.20-6.10); RED CELL DISTRIBUTION WIDTH 30.4 % (11.6-13.7); SODIUM SERUM 144 mmol/L (136-145); UREA NITROGEN, BLOOD 11 mg/dL (7-18)
--- NOTE | 2022-09-11 07:22 | NUR ---
RECEIVED REPORT FROM [facility] NURSE JEIMY FOR CONTINUITY OF CARE, PT CURRENTLY SLEEPING A/OX2. BREATHING IS EVEN, REGULAR, AND MILDLY LABORED ON 7L VIA OXYMIZER. PT IS INCONTINENT OF THE BOWEL, WITH LEMUS HANGING TO GRAVITY. SKIN IS DRY, WITH LOW MARY SCORE, AND STAGE 2 PI ON SACRUM. PT IS S/P CHEST TUBE REMOVAL. RT ROUNDING AT THE BEDSIDE.
--- NOTE | 2022-09-11 07:22 | NUR ---
PT IS STABLE. ENDORSED PT TO MORNING SHIFT NURSE FOR CONTINUITY OF CARE.
--- NOTE | 2022-09-11 07:29 | NUR ---
SATURATION 73% PT SELF REMOVED SUPPLEMENTAL OXYGEN. POST HHN THERAPY PLACED ON 3L NASAL CANNULA. A SAAD SRT
--- NOTE | 2022-09-11 07:33 | NUR ---
RT AT THE BEDSIDE REPORTED PT ON ROOM AIR SPO2 76-79%, BREATHING TREATMENT GIVEN. REINFORCED EDUCATION TO PT TO KEEP OXYMIZER ON.
[2022-09-11] MEDS: FERROUS SULFATE 325 MG TABEC PO SCH (08:47)
[2022-09-11] MEDS: LABETALOL 100 MG TAB PO SCH ×2 (08:47→21:00)
--- NOTE | 2022-09-11 08:57 | NUR ---
PT PULLED OUT IV IN LEFT HAND WHILE MEDICATING, NO BLEEDING AT THE SITE. ATTEMPTED TO FLUSH IV ON RIGHT FOREARM, LEAKING NOTED AND IV REMOVED. NEW 20G IV INSERTED ON LEFT WRIST, PT TOLERATED WELL.
--- NOTE | 2022-09-11 09:33 | NUR ---
RADIOLOGY AT THE BEDSIDE, CXR BEING PERFORMED.
[2022-09-11] MEDS: PANTOPRAZOLE 40 MG INJ VIAL IVP SCH (09:34)
[2022-09-11] MEDS: THERAHONEY GEL 42.5 GM TP SCH (13:00)
--- NOTE | 2022-09-11 16:22 | NUR ---
PT COMPLAINED OF HEADACHE AND DIZZINESS. RT AT THE BEDSIDE, SPO2 MAINTAINING WELL AT 96% ON 3L VIA NASAL CANNULA. BLOOD SUGAR WAS 98, GAVE THE PATIENT AN APPLE JUICEBOX TO DRINK. NOTIFIED MD FOR PRN ORDER.
[2022-09-11] MEDS ORDERED: ACETAMINOPHEN 325 MG TAB PO PRN (16:30)
--- NOTE | 2022-09-11 16:50 | NUR ---
PT SETTLED DOWN AFTER DRINKING APPLE JUICE, NOW EATING APPLESAUCE. NEW ORDER FOR PRN TYLENOL Q6H PRN FOR MILD PAIN/SPENCER GIVEN
--- NOTE | 2022-09-11 17:50 | NUR ---
PT BEGAN ASKING FOR HIS KEYS, STATING HE DROPPED THEM. REORIENTED PT MULTIPLE TIMES, PT ATTEMPTED TO GET OUT OF BED 2X, WAS ABLE TO KEEP HIM IN BED.
--- NOTE | 2022-09-11 19:24 | NUR ---
[facility] FOR CONTINUITY OF CARE. PT IN STABLE CONDITION.
--- NOTE | 2022-09-11 19:25 | NUR ---
RECEIVED PT TO MORNING SHIFT NURSE. PT IS AOX2, CONFUSED AND BEDBOUND. PT IS ON NORMAL SINUS RHYTHM, WITH 3L NC AND ON CARDIAC, MECHANICAL SOFT DIET. PT HAS LEMUS CATHETER AND HAS IV ON LEFT WRIST GAUGE 20 RUNNING WITH D5W AT 75. PT HAS STAGE 2 PRESSURE ULCER ON SACRUM. ALL SAFETY MEASURES IMPLEMENTED. BED IN LOW POSITION, BED WHEELS ON LOCKED AND CALL LIGHT WITHIN REACH.
--- NOTE | 2022-09-11 19:40 | NUR ---
ON ARRIVAL PT WAS NOT WEARING NC HE WAS SATING 80%. TX WAS GIVEN AND PULSE OX READING WAS NOT ABLE TO BE OBTAINED, PT HAS POOR PERFUSION. MYSELF AND OTHER RT TRIED GETTING A READING ON MULTIPLE LOCATIONS AND WAS NOT ABLE TO RECEIVE A STABLE READING. LAST READING SAT WAS AT 91%, PT WAS PUT ON 5LNC. PT WAS INSTRUCTED NOT TO TAKE OFF, PT WAS A LITTLE CONFUSED. NURSE IS AWARE OF SITUATION AND WILL CONTINUE TO MONITOR.
[2022-09-11] MEDS: DONEPEZIL 10 MG TAB PO SCH (20:24)
[2022-09-11] MEDS: MIRTAZAPINE 15 MG TAB PO SCH (20:24)
--- NOTE | 2022-09-11 22:00 | NUR ---
PT REMOVED THE O2 SAT MONITORING AND REFUSED TO PUT IT BACK. EDUCATED THE PT BUT THE STILL PT REFUSED TO PUT THE O2 SAT MONITOR. ALL SAFETY MEASURES IMPLEMENTED. BED IN LOW POSITION, BED WHEELS ON LOCKED AND CALL LIGHT WITHIN REACH.
--- NOTE | 2022-09-11 23:34 | NUR ---
NOTIFIED DR. SANCHEZ DUE TO PT'S. AGITATION. DR SANCHEZ ORDER ATIVAN 1MG IVP Q4H PRN. ORDER WAS MADE AND CARRIED OUT.
[2022-09-11] MEDS: LORazepam 2 MG/ML VIAL IVP PRN (23:54)
--- NOTE | 2022-09-11 23:54 | NUR ---
ATIVAN PRN WAS GIVEN TO PT PER MD ORDER DUE TO AGITATION. PT VS; BP-151/82, P-74, RR-22 T-98, O2 SAT-100%. ALL SAFETY MEASURES IMPLEMENTED. BED IN LOW POSITION, BED WHEELS ON LOCKED AND CALL LIGHT WITHIN REACH.
[2022-09-12] VITALS: BP 151/82
[2022-09-12] MEDS: ALBUTEROL SULFATE/IPRATROPIU 3 ML SOL IH SCH ×3 (01:00→19:00)
[2022-09-12] MEDS: HYDRAGUARD CREAM TP SCH ×2 (01:04→13:13)
[2022-09-12] MEDS: Z-GUARD PASTE TP SCH ×2 (01:05→13:14)
[2022-09-12] MEDS: DEXTROSE 5% 1,000 ML IV SCH (01:42)
--- NOTE | 2022-09-12 02:00 | NUR ---
PT IS SLEEPING. CHEST RISE AND FALL NOTED. NO S/S OF RESPIRATORY DISTRESS SATING AT 100%. ALL SAFETY MEASURES IMPLEMENTED. BED IN LOW POSITION, BED WHEELS ON LOCKED AND CALL LIGHT WITHIN REACH.
[2022-09-12 04:00] VITALS: BP 104/64
--- NOTE | 2022-09-12 04:00 | NUR ---
CHECKED THE PT, STILL SLEEPING. CHEST RISE AND FALL NOTED. NO S/S OF RESPIRATORY DISTRESS. ALL SAFETY MEASURES IMPLEMENTED. BED IN LOW POSITION, BED WHEELS ON LOCKED AND CALL LIGHT WITHIN REACH.
--- NOTE | 2022-09-12 04:15 | NUR ---
MONITOR THE PT CLOSELY BECAUSE PT CONTINUOUSLY REMOVING HIS O2 SAT MONITOR. EDUCATED THE PT BUT PT CONTINUOUSLY DO IT.
--- NOTE | 2022-09-12 04:30 | NUR ---
PT WAS FOUND WITH AUDIBLE EXPIRATORY WHEEZE AND SUBCUTANEOUS EMPHYSEMA ON RIGHT UPPER CHEST. PT WAS GIVEN A DUONEB. PULSE OX WAS NOT STABLE DUE TO PT TRYING TO TAKE IT OFF. PT IS SLIGHTLY CONFUSED RN IS AWARE OF PT STATUS.
--- NOTE | 2022-09-12 06:33 | NUR ---
PT BLOOD GLUCOSE IS 110. NO NEED FOR INSULIN COVERAGE.
[2022-09-12] MEDS: BLOOD GLUCOSE MONITORING 1 DEV DEV FS SCH ×4 (06:36→21:54)
--- NOTE | 2022-09-12 07:16 | NUR ---
PT IS STABLE. ENDORSED PT TO MORNING SHIFT NURSE FOR CONTINUITY OF CARE.
--- NOTE | 2022-09-12 07:20 | NUR ---
RECEIVED BEDSIDE REPORT FROM [facility] CODY MUNSON. PT IS ON 3L NC CURRENTLY. PT HAS 20G IV ON THE RIGHT FOREARM WELL IV ON THE LEFT HAND 24G PATENT AND INTACT. CALL LIGHT WITHIN REACH & BED IN LOWEST POSITION. Addendum: 09/12/22 at 1100 by Judith Hargrove RN PT IS A&OX1 TO NAME.
[2022-09-12 07:46] LABS: BASOPHILS % (AUTO) 0.4 % (0.0-2.0); EOSINOPHILS # (AUTO) 0.1 K/uL (0-0.4); EOSINOPHILS % (AUTO) 2.4 % (0.0-4.0); HEMATOCRIT 28.1 % (36-52); HEMOGLOBIN 8.8 g/dL (12.0-18.0); LYMPHOCYTES # (AUTO) 0.7 K/uL (2.0-11.5); LYMPHOCYTES % (AUTO) 24.9 % (20.5-51.1); MEAN CORPUSCULAR HEMOGLOBIN 28 pg (27-31); MEAN CORPUSCULAR HGB CONC 31 g/dL (33-37); MEAN CORPUSCULAR VOLUME 89.7 fL (80-94); MONOCYTES # (AUTO) 0.3 K/uL (0.8-1.0); NEUTROPHILS # (AUTO) 1.7 K/uL (1.8-7.7); NEUTROPHILS % (AUTO) 60.3 % (42.2-75.2); PLATELET COUNT (AUTO) 287 K/uL (140-450); RED BLOOD CELL COUNT(AUTO) 3.13 MIL/uL (4.20-6.10); RED CELL DISTRIBUTION WIDTH 30.4 % (11.6-13.7); WHITE BLOOD COUNT (AUTO) 2.9 K/uL (4.8-10.8)
[2022-09-12 08:00] VITALS: BP 147/74
[2022-09-12 08:03] LABS: ANION GAP 11.1 (8-16); CARBON DIOXIDE 24.7 mmol/L (21-32); CHLORIDE 108 mmol/L (98-107); CREATININE 0.6 mg/dL (0.6-1.3); GLUCOSE 107 mg/dL (74-106); POTASSIUM 4.8 mmol/L (3.5-5.1); SODIUM SERUM 139 mmol/L (136-145); UREA NITROGEN, BLOOD 10 mg/dL (7-18)
[2022-09-12] MEDS: LORazepam 2 MG/ML VIAL IVP PRN (08:08)
[2022-09-12] MEDS: LABETALOL 100 MG TAB PO SCH ×2 (09:00→21:00)
[2022-09-12] MEDS: FERROUS SULFATE 325 MG TABEC PO SCH (09:00)
[2022-09-12] MEDS: PANTOPRAZOLE 40 MG INJ VIAL IVP SCH (09:00)
[2022-09-12 12:00] VITALS: BP 143/70
[2022-09-12] MEDS: THERAHONEY GEL 42.5 GM TP SCH (13:14)
[2022-09-12 16:00] VITALS: BP 141/68
--- NOTE | 2022-09-12 19:30 | NUR ---
ENDORSED PT TO [facility] CODY CREWS FOR CONTINUITY OF CARE. PT IN STABLE CONDITION. PT HAS NO S/S OF DISTRESS AT THIS TIME.
[2022-09-12 20:00] VITALS: BP 105/68
--- NOTE | 2022-09-12 20:23 | NUR ---
PT REFUSED TX STATING HE WANTS TO SLEEP AND IS TIRED
[2022-09-12] MEDS: MIRTAZAPINE 15 MG TAB PO SCH (21:00)
[2022-09-12] MEDS: DONEPEZIL 10 MG TAB PO SCH (21:00)
--- NOTE | 2022-09-12 23:05 | NUR ---
SLEEPING - ON TELE MONITOR - HR 48 , WAKING UP THE PT - WHEN THE TIME PT AWAKE HR GOES TO 77 - NO S/ SX OF ACUTE DISTRESS NOTED . WILL CONT. TO MONITOR .
[2022-09-13] VITALS: BP 104/63
--- NOTE | 2022-09-13 00:31 | NUR ---
ROUNDS , SLEEPING , AWAKEABLE BY TOUCH AND SOUNDS , ON TELE MONITOR , NO S/SX OF ACUTE DISTRESS NOTED AT THIS TIME , WILL CONT. TO MONITOR .
[2022-09-13] MEDS: HYDRAGUARD CREAM TP SCH (01:50)
[2022-09-13] MEDS: Z-GUARD PASTE TP SCH (01:50)
[2022-09-13] MEDS: ALBUTEROL SULFATE/IPRATROPIU 3 ML SOL IH SCH (01:59)
--- NOTE | 2022-09-13 02:04 | NUR ---
UPON ARRIVAL NC ON PTS CHEST PT IS AWAKE REPLACED 3LNC ON PT AND SPO2 CLIMBED TO 95% PT REMOVED CANNULA DURING Tx AND WAS REPLACED ON FACE AGAIN 3LNC WAS REPLACED ON PT ONCE MORE PRIOR TO MY DEPARTURE WILL CONTINUE TO MONITOR
[2022-09-13 04:00] VITALS: BP 123/72
--- NOTE | 2022-09-13 04:00 | NUR ---
no s/sx of acute distress noted , will cont. to monitor .
--- NOTE | 2022-09-13 06:10 | NUR ---
bs 68 - will medicate , refused blood am draw - will inform dr Es mayer .
[2022-09-13] MEDS: DEXTROSE 50% 50 ML SYR IVP PRN (06:13)
[2022-09-13] MEDS: BLOOD GLUCOSE MONITORING 1 DEV DEV FS SCH (07:30)
--- NOTE | 2022-09-13 07:30 | NUR ---
endorsed pt for cont . of care . latest bs 111 .
--- NOTE | 2022-09-13 07:36 | NUR ---
RECEIVED REPORT FROM PM NURSE. PT IS RESTING IN BED, AAO x1-SELF, ABLE TO MAKE NEEDS KNOWN. DENIES PAIN/DISCOMFORT. RESPIRATIONS EVEN AND UL ON 3LNC, O2 SAT 96%. SL TO LFA, IV SITE WNL. LEMUS CATH DRAINING YELLOW URINE VIA GRAVITY TO BEDSIDE DRAINAGE BAG. ALL NEEDS MET AT THIS TIME. SIDE RAILS x2, BED IN LOWEST POSITION, CALL LIGHT IN REACH. WILL CONT TO MONITOR.
[2022-09-13 08:00] VITALS: BP 106/60
[2022-09-13] MEDS: PANTOPRAZOLE 40 MG INJ VIAL IVP SCH (08:30)
[2022-09-13] MEDS: FERROUS SULFATE 325 MG TABEC PO SCH (08:30)
[2022-09-13] MEDS: LABETALOL 100 MG TAB PO SCH (08:35)
[2022-09-13] MEDS: FOAM DRESSING TP SCH (08:40)
--- NOTE | 2022-09-13 11:15 | NUR ---
PT HAS A DISCHARGE ORDER. PATIENT IS TO BE TRANSFERRED TO [facility] ROOM 6A. SPOKE WITH CRISTINA RN AT FACILITY, FULL REPORT GIVEN AT 1050. TRANSPORT WITH [facility] TRANSFERRED PT VIA GURNEY, REPORT GIVEN, DISCHARGE TRANSFER PACKET GIVEN. PT TRANSFERRED ON 3LNC. TRANSFERRED WITH LEMUS CATH AND LFA IV SITE PER CRISTINA RN REQUEST. DISCHARGE PACKET SIGNED/CO-SIGNED WITH SECOND NURSE AND PLACED IN CHART.
== END 2022-09-13 11:15 | DRG 871 ==
LOC: MED 21:38 → MIC 09-04 02:04 → MTU 09-04 17:49
PROVIDERS: ADMIT Hospitalist; ATTEND Hospitalist
PROC: 0W9930Z Drainage of Right Pleural Cavity with Drainage Device, Percutaneous Approach (ICD-10-PCS; principal; 2022-09-04)
PROC: 0WP930Z Removal of Drainage Device from Right Pleural Cavity, Percutaneous Approach (ICD-10-PCS; 2022-09-10)
DX: A41.9 Sepsis, unspecified organism (principal); E43 Unspecified severe protein-calorie malnutrition; J96.01 Acute respiratory failure with hypoxia; N17.0 Acute kidney failure with tubular necrosis; J18.9 Pneumonia, unspecified organism; R53.2 Functional quadriplegia; J93.9 Pneumothorax, unspecified; E87.0 Hyperosmolality and hypernatremia; E87.20 Acidosis, unspecified; J44.0 Chronic obstructive pulmonary disease with (acute) lower respiratory infection; Z68.1 Body mass index [BMI] 19.9 or less, adult; J44.1 Chronic obstructive pulmonary disease with (acute) exacerbation; R62.7 Adult failure to thrive; Z20.822 Contact with and (suspected) exposure to COVID-19; R65.20 Severe sepsis without septic shock; F01.A0 Vascular dementia, mild, without behavioral disturbance, psychotic disturbance, mood disturbance, and anxiety; D63.8 Anemia in other chronic diseases classified elsewhere; E86.0 Dehydration; E83.51 Hypocalcemia; R13.10 Dysphagia, unspecified; I12.9 Hypertensive chronic kidney disease with stage 1 through stage 4 chronic kidney disease, or unspecified chronic kidney disease; E11.22 Type 2 diabetes mellitus with diabetic chronic kidney disease; N18.9 Chronic kidney disease, unspecified; R33.9 Retention of urine, unspecified; D75.838 Other thrombocytosis; E87.8 Other disorders of electrolyte and fluid balance, not elsewhere classified; E87.6 Hypokalemia; Z86.718 Personal history of other venous thrombosis and embolism; Z79.4 Long term (current) use of insulin
CPT/HCPCS: 36415; 36600; 71045; 71250; 76770; 80048; 80053; 81001; 82803; 82948; 83036; 83605; 83735; 83880; 84484; 85025; 85610; 85730; 87040; 87081; 87086; 93005; 94640; 96365; 99285; C9113; J0696; J1644; J1815; J2001; J2060; J2270; J3480; J3490; J7060; Q0092